=== PATIENT | female | born 1960 | race Caucasian/White ===

== ENCOUNTER 2020-12-31 13:59 | Emergency (ER) | payer SELFPAY ==
[~2020-12-31] VITALS: Ht 160 cm; Wt 55.0 kg
--- NOTE | 2020-12-31 14:39 | NUR ---
dreads cut w permission from pt, no lac visualized, just bloody abrasion. as
[2020-12-31] MEDS ORDERED: L.E.T SOLUTION TP ONE (14:46)
--- NOTE | 2020-12-31 14:51 | NUR ---
LET applied 1446, juan diego fontenot was in room. as
--- NOTE | 2020-12-31 15:29 | NUR ---
wound cleaned by tech no lac visualized. to ct. as
[2020-12-31 15:30] VITALS: BP 153/78
--- NOTE | 2020-12-31 15:43 | NUR ---
pt back in room. as
== END 2020-12-31 16:32 | disposition home or self-care (01) ==
LOC: EDBD 13:59 → ED 14:52
DX: S00.03XA Contusion of scalp, initial encounter (principal); S00.91XA Abrasion of unspecified part of head, initial encounter; R94.31 Abnormal electrocardiogram [ECG] [EKG]; W18.30XA Fall on same level, unspecified, initial encounter; Y93.89 Activity, other specified; Y92.410 Unspecified street and highway as the place of occurrence of the external cause; Y99.8 Other external cause status
CPT/HCPCS: 70450; 93005; 99284